=== PATIENT | female | born 1975 | race African-American/Black ===

== ENCOUNTER 2017-03-15 17:43 | Emergency (ER) | payer OTHER ==
[~2017-03-15] VITALS: Ht 167.6 cm; Wt 113.4 kg
[~2017-03-15 17:43] MED LIST: ANTIVERT25 MG PO; BACTRIM DS TAB1 EACH PO; FLEXERIL PO; IBUPROFEN 600600 M1 PO; IBUPROFEN 800800 MG PO; MECLIZINE 25 MG25 M1 PO; NORCO 5-325 TA1 EACH PO; PREDNISONE50 MG PO; PROAIR HFA8.5 GM IH; VALIUM5 MG PO
[2017-03-15] MEDS ORDERED: PREDNISONE 20 M20 MG PO (18:48)
[2017-03-15] MEDS ORDERED: PROVENTIL HFA6.7 G1 INH (18:48)
[2017-03-15 18:51] VITALS: BP 128/73
== END 2017-03-15 18:54 | disposition home or self-care (01) ==
LOC: ER 17:43
DX: R06.00 Dyspnea, unspecified (principal); J98.01 Acute bronchospasm; F17.210 Nicotine dependence, cigarettes, uncomplicated; F10.99 Alcohol use, unspecified with unspecified alcohol-induced disorder

== ENCOUNTER 2017-09-15 14:26 | Emergency (ER) | payer OTHER ==
[~2017-09-15] VITALS: Ht 167.6 cm; Wt 120.2 kg
--- NOTE | ~2017-09-15 | EKG ---
[address] [address] ELECTROCARDIOGRAM REPORT Name: TORY OLIVEIRA Room #: DEP [facility]#: [id number] Admission: 09/15/17 Attend Phys: Discharge: 09/15/17 Date of : 77 Report #: [id number] THIS REPORT FOR: //name// [facility] ED Test Date: 2017-09-15 Test Time: 14:34:56 Pat Name: TORY OLIVEIRA Department: Room: Gender: F [employer]ist: TSTORCK : 1975 Requested By: Raúl Montes Order Number: [id number] MD: Karel De Leon Measurements Intervals [place] Rate: 80 P: 47 TX: 153 QRS: 33 QRSD: 83 T: 50 QT: 381 QTc: 440 Interpretive Statements Sinus rhythm Normal tracing Compared to ECG 11/27/2015 08:28:43 No significant changes Electronically Signed On 09-16-2017 8:22:02 CDT by Karel De Leon [email or web address] <ELECTRONICALLY SIGNED> By: Karel De Leon MD, [facility] 09/16/17 0822 [id number] 143 Karel De Leon MD, FACC /EPI
[~2017-09-15 14:26] MED LIST changes: +PREDNISONE 20 M20 MG PO; +PROVENTIL HFA6.7 G1 INH
[2017-09-15 15:05] LABS: ABSOLUTE NEUTROPHILS 5.1 thou/uL (1.4-8.2); BASOPHILS 0.8 % (0.0-2.0); EOSINOPHILS 1.4 % (0.0-3.0); HEMATOCRIT 37.8 % (37.0-47.0); HEMOGLOBIN 12.4 gm/dL (12.0-15.0); LYMPHOCYTES 30.9 % (24.0-44.0); MCH 29.4 pg (26.0-34.0); MCHC 32.7 g/dL (28.0-37.0); MCV 89.8 fL (80.0-100.0); MONOCYTES 5.7 % (1.0-8.0); PLATELET COUNT 271 thou/uL (150-400); POLYS 61.2 % (36.0-66.0); RBC 4.21 mil/uL (4.20-5.00); RDW 13.9 % (10.5-14.5); WBC 8.3 thou/uL (4.0-11.0)
[2017-09-15 15:16] LABS: ANION GAP 7 mmol/L (7-16); BUN 9 mg/dL (7-18); CALCIUM 9.1 mg/dL (8.5-10.1); CHLORIDE 103 mmol/L (98-107); CO2 28 mmol/L (21-32); CREATININE 0.7 mg/dL (0.6-1.0); GLUCOSE 99 mg/dL (74-106); POTASSIUM 3.7 mmol/L (3.5-5.1); SODIUM 138 mmol/L (136-145)
[2017-09-15 15:23] LABS: ALBUMIN 3.4 g/dL (3.4-5.0); MAGNESIUM 1.8 mg/dL (1.8-2.4); SGOT 13 U/L (15-37); SGPT 19 U/L (30-65); TOTAL BILIRUBIN 0.3 mg/dL (<0.1-1.0); TOTAL PROTEIN 7.4 g/dL (6.4-8.2); TROPONIN-I < 0.04 ng/mL (<0.06)
[2017-09-15 15:53] LABS: URINE BILIRUBIN NEGATIVE (Negative); URINE BLOOD TRACE (Negative); URINE CLARITY CLEAR; URINE COLOR YELLOW; URINE GLUCOSE-RANDOM* NEGATIVE (Negative); URINE KETONES NEGATIVE (Negative); URINE LEUKOCYTES-REFLEX NEGATIVE (Negative); URINE NITRITE-REFLEX NEGATIVE (Negative); URINE PROTEIN (DIPSTICK) NEGATIVE (Negative); URINE UROBILINOGEN 0.2 E.U./dl (0.2-1.0)
[2017-09-15 16:00] LABS: AMP/METHAMP Negative (Negative); BARBITURATES Negative (Negative); BENZODIAZEPINES Negative (Negative); COCAINE Negative (Negative); METHADONE Negative (Negative); OPIATES Negative (Negative); PCP Negative (Negative)
[2017-09-15] MEDS ORDERED: PEPCID20 MG PO (16:27)
[2017-09-15] MEDS ORDERED: ZOFRAN ODT8 MG PO (16:27)
[2017-09-15] MEDS ORDERED: IBUPROFEN 800800 MG PO (16:36)
[2017-09-15 16:40] VITALS: BP 133/88
== END 2017-09-15 16:41 | disposition home or self-care (01) ==
LOC: ER 14:26
PROVIDERS: Emergency Medicine
DX: R19.7 Diarrhea, unspecified (principal); R07.89 Other chest pain; R11.0 Nausea; R20.2 Paresthesia of skin; F17.210 Nicotine dependence, cigarettes, uncomplicated